=== PATIENT | female | born 1960 | race Caucasian/White ===

== ENCOUNTER 2024-03-10 15:54 | Emergency (ER) | payer OTHER, SELFPAY ==
[2024-03-10 16:14] VITALS: BP 111/86; PULSE 86; RESP 16; TEMP 37.1; O2SAT 97; BMI 26.6
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
[2024-03-10 18:18] VITALS: BP 116/58; PULSE 75; RESP 16; O2SAT 96
[2024-03-10] MEDS: LORazepam 1 mg Tablet PO (18:18)
== END 2024-03-10 18:25 | disposition home or self-care (01) ==
PROVIDERS: Emergency Provider Emergency Medicine; PCP Neurological Surgery
DX: T76.21XA Adult sexual abuse, suspected, initial encounter (principal)
CPT/HCPCS: 99283